=== PATIENT | female | born 1955 | race Caucasian/White ===

== ENCOUNTER 2016-09-16 16:34 | Emergency (ER) | payer BC ==
[2016-09-16 16:59] VITALS: BP 155/78
[2016-09-16 17:35] LABS: CHLORIDE,CL 101 mmol/L (98-115); SODIUM,NA 141 mmol/L (136-145)
--- NOTE | 2016-09-16 17:41 | EDM.PDOC ---
ED HPI GI/ABDOMINAL - General Chief Complaint: Gastrointestinal Problem Stated Complaint: vomiting Time Seen by Provider: 09/16/16 17:07 Source of Information: Reports: Patient History Limitations: Reports: No limitations - History of Present Illness INITIAL COMMENTS - FREE TEXT/NARRATIVE: Patient presents with vomiting and pain across upper abdomen and lower chest. The pain started 12 hours ago (at 0500 this morning) and lasted two hours then resolved. Two hours ago it returned and is now gradually resolving to mild currently. She also vomited 3 times in last 2.5 hours. She felt like the pain was gas so she took Gaviscon and Gas-X; it is better without any other treatment so far. The pain lasts about two hours per episode she says. She denies any history of heart problems but does have it in the family. No diarrhea; last meal at noon and no problems then. - Related Data Allergies/ADRs: Allergies Allergy/AdvReac Type Severity Reaction Status Date / Time Tetanus Vaccines and Toxoid Allergy Swelling Verified 04/02/16 15:16 [Tetanus Vaccines & Toxoid] Home Meds: Home Meds Celecoxib [CeleBREX] 200 mg PO DAILY 03/26/15 [History] Citalopram Hydrobromide [Citalopram HBr] 20 mg PO DAILY 03/26/15 [History] Omeprazole 20 mg PO DAILY 03/26/15 [History] predniSONE [Prednisone] 5 mg PO DAILY 03/26/15 [History] Lisinopril/Hydrochlorothiazide [Lisinopril-Hctz 20-12.5 mg Tab] 1 tab PO DAILY 03/19/16 [History] Past Medical History HEENT History: Reports: Impaired vision Cardiovascular History: Reports: Hypertension Gastrointestinal History: Reports: GERD 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: Musculoskeletal History: Reports: RA Psychiatric History: Reports: Anxiety, Depression Hematologic History: Reports: Anemia, Blood transfusion(s), Iron deficiency Oncologic (Cancer) History: Reports: Cervix - Past Surgical History HEENT Surgical History: Reports: None Cardiovascular Surgical History: Reports: None GI Surgical History: Reports: Appendectomy, Cholecystectomy Musculoskeletal Surgical History: Reports: None Social & Family History - Tobacco Use Smoking Status *Q: Former Smoker Years of Tobacco use: 20 Packs/Tins Daily: 2 Used Tobacco, but Quit: Yes Month Tobacco Last Used: 10 Second Hand Smoke Exposure: Yes - Recreational Drug Use Recreational Drug Use: No ED ROS GENERAL - Review of Systems Review Of Systems: See Below Constitutional: Reports: fever. Denies: chills, malaise, weakness, diaphoresis HEENT: Denies: Throat pain, Vision change Respiratory: Denies: Shortness of Breath, Cough Cardiovascular: Reports: Chest pain. Denies: Lightheadedness, Syncope Endocrine: Denies: fatigue GI/Abdominal: Reports: Abdominal pain, Vomiting. Denies: Diarrhea : Reports: frequency, urgency. Denies: dysuria Musculoskeletal: Reports: no symptoms Skin: Denies: cyanosis, jaundice, mottled, pallor, diaphoresis Neurological: Denies: Confusion, Dizziness, Headache, Seizure, Trouble Speaking Psychiatric: Denies: Agitation, Anxiety, Confusion ED EXAM, GI/ABD - Physical Exam Exam: See Below Exam Limited By: No limitations General Appearance: alert, WD/WN, no apparent distress Eyes: bilateral: normal appearance, EOMI Ears: normal external exam, hearing grossly normal Nose: normal inspection Throat/Mouth: Normal inspection, Normal lips, Normal voice, No airway compromise Head: atraumatic, normocephalic Neck: full range of motion Respiratory/Chest: no respiratory distress, lungs clear, normal breath sounds, no accessory muscle use Cardiovascular: regular rate, rhythm, no murmur GI/Abdominal: normal bowel sounds, soft, non tender, no organomegaly, no distention Back Exam: normal inspection Extremities: normal range of motion, non-tender Neurological: alert, oriented, normal cognition, no motor/sensory deficits Psychiatric: normal affect, normal mood Skin Exam: Warm, Dry, Intact, Normal color, No rash Course - Vital Signs Last Recorded V/S: Last Vital Signs Temp 101.8 F H 09/16/16 16:58 Pulse 83 09/16/16 16:58 Resp 20 09/16/16 16:58 BP 155/78 H 09/16/16 16:58 Pulse Ox 96 09/16/16 16:58 - Orders/Labs/Meds Orders: Active Orders 24 hr Category Date Time Status EKG Documentation Completion [RC] ASDIRECTED Care 09/16/16 17:35 Ordered CXR [Chest 2V] [CR] Stat Exams 09/16/16 17:34 Ordered CBC WITH AUTO DIFF [HEME] Stat Lab 09/16/16 17:00 Ordered CULTURE BLOOD [BC] Stat Lab 09/16/16 17:00 Received CULTURE BLOOD [BC] Stat Lab 09/16/16 17:20 Received GI Cocktail Med 09/16/16 18:29 Once 45 ml PO ONETIME ONE Ondansetron [Zofran] Med 09/16/16 18:29 Once 4 mg IVPUSH ONETIME ONE Sodium Chloride 0.9% @ 999 MLS/HR (1000ml) Med 09/16/16 17:44 Ordered Sodium Chloride 0.9% [Normal Saline] 1,000 ml IV .BOLUS Blood Culture x2 Reflex Set [OM.PC] Stat Oth 09/16/16 17:03 Ordered EKG 12 Lead [EK] Routine Ther 09/16/16 17:35 Ordered Medication Orders Sodium Chloride (Normal Saline) 1,000 mls @ 999 mls/hr IV .BOLUS ONE Stop: 09/16/16 18:44 Last Admin: 09/16/16 18:10 Dose: 999 mls/hr Labs: Laboratory Tests 09/16/16 09/16/16 Range/Units 17:00 17:40 Sodium 141 (136-145) mmol/L Potassium 4.0 (3.3-5.3) mmol/L Chloride 101 (98-115) mmol/L Carbon Dioxide 34.8 H (21.0-32.0) mmol/L BUN 21 (6-25) mg/dL Creatinine 1.18 H (0.51-1.17) mg/dL Est Cr Clr Drug Dosing TNP Estimated GFR (MDRD) 46 mL/min Glucose 104 (70-110) mg/dL Calcium 8.9 (8.7-10.3) mg/dL Troponin I 0.06 (0.00-0.070) ng/mL Specimen Type Urincc Urine Color Yellow (YELLOW) Urine Appearance Clear (CLEAR) Urine pH 6.0 (5.0-9.0) Ur Specific [place] 1.020 (1.005-1.030) Urine Protein Negative (NEGATIVE) mg/dL Urine Glucose (UA) Negative (NEGATIVE) mg/dL Urine Ketones Negative (NEGATIVE) mg/dL Urine Occult Blood Trace-lysed H (NEGATIVE) Urine Nitrite Negative (NEGATIVE) Urine Bilirubin Negative (NEGATIVE) Urine Urobilinogen 0.2 (0.2-1.0) E.U./dL Ur Leukocyte Esterase Negative (NEGATIVE) Urine RBC 0-5 /HPF Urine WBC 0-5 /HPF Ur Epithelial Cells Few /LPF Amorphous Sediment Few (0/HPF) /HPF Urine Bacteria Few (NONE TO FEW) /HPF Urine Mucus Few H (NEGATIVE) /LPF Meds: Medications Generic Name Dose Route Start Last Admin Trade Name Theresa PRN Reason Stop Dose Admin Sodium Chloride 1,000 mls @ 999 mls/hr 09/16/16 17:44 09/16/16 18:10 Normal Saline IV 09/16/16 18:44 999 mls/hr .BOLUS ONE Administration - Re-Assessments/Exams Free Text/Narrative Re-Assessment/Exam: 09/16/16 18:32 Patient is feeling better but some mild nausea yet. She still has a bit of the pain across low chest/abdomen. IV fluids are half done. Will try GI cocktail. She doesn't want Zofran yet but will do it after the fluids before we take out IV. EKG and troponin are normal. 09/16/16 19:25 Patient is feeling much better. The GI cocktail completely took away the pain across lower chest. The nausea is gone. She is sitting up and ready to go home she says. I feel this is definitely not cardiac in origin. Discussed findings and treatment plan. Patient discharged in stable condition. Departure - Departure Time of Disposition: 19:20 Disposition: Home, Self-Care 01 Condition: good Clinical Impression: Nausea and vomiting in adult GERD (gastroesophageal reflux disease) Qualifiers: Esophagitis presence: esophagitis presence not specified Qualified Code(s): K21.9 - Gastro-esophageal reflux disease without esophagitis Instructions: Nausea and Vomiting, Adult, [id number], Heartburn Forms: ED Department Discharge Additional Instructions: 1. Try to drink 8 cups of water daily. 2. Take the Zofran for nausea as directed. 3. Recheck with your PCP in a few days. 4. Recheck sooner if worsening, with PCP or ER. - My Orders Last 24 Hours: My Active Orders 09/16/16 17:00 CBC WITH AUTO DIFF [HEME] Stat CULTURE BLOOD [BC] Stat 09/16/16 17:03 Blood Culture x2 Reflex Set [OM.PC] Stat 09/16/16 17:20 CULTURE BLOOD [BC] Stat 09/16/16 17:34 CXR [Chest 2V] [CR] Stat 09/16/16 17:35 EKG Documentation Completion [RC] ASDIRECTED EKG 12 Lead [EK] Routine 09/16/16 17:44 Sodium Chloride 0.9% @ 999 MLS/HR (1000ml) Sodium Chloride 0.9% [Normal Saline] 1,000 ml IV .BOLUS 09/16/16 18:29 GI Cocktail 45 ml PO ONETIME ONE Ondansetron [Zofran] 4 mg IVPUSH ONETIME ONE - Assessment/Plan Last 24 Hours: My Active Orders 09/16/16 17:00 CBC WITH AUTO DIFF [HEME] Stat CULTURE BLOOD [BC] Stat 09/16/16 17:03 Blood Culture x2 Reflex Set [OM.PC] Stat 09/16/16 17:20 CULTURE BLOOD [BC] Stat 09/16/16 17:34 CXR [Chest 2V] [CR] Stat 09/16/16 17:35 EKG Documentation Completion [RC] ASDIRECTED EKG 12 Lead [EK] Routine 09/16/16 17:44 Sodium Chloride 0.9% @ 999 MLS/HR (1000ml) Sodium Chloride 0.9% [Normal Saline] 1,000 ml IV .BOLUS 09/16/16 18:29 GI Cocktail 45 ml PO ONETIME ONE Ondansetron [Zofran] 4 mg IVPUSH ONETIME ONE
[2016-09-16] MEDS ORDERED: Sodium Chloride 0.9% 1,000 ML IV ONE (17:44)
[2016-09-16] MEDS ORDERED: Ondansetron 4 MG/2 ML SDV IVPUSH ONE (18:29)
[2016-09-16] MEDS ORDERED: GI Cocktail 45 ML BOTTLE PO ONE (18:29)
[2016-09-16] MEDS ORDERED: GI Cocktail 45 ML BOTTLE ONE (18:36)
== END 2016-09-16 19:45 | disposition home or self-care (01) ==
LOC: KA.ED 16:34
DX: K21.9 Gastro-esophageal reflux disease without esophagitis (principal); I10 Essential (primary) hypertension; M06.9 Rheumatoid arthritis, unspecified; F41.9 Anxiety disorder, unspecified; F32.9 Major depressive disorder, single episode, unspecified; D64.9 Anemia, unspecified; Z98.890 Other specified postprocedural states; Z87.891 Personal history of nicotine dependence; Z79.899 Other long term (current) drug therapy; Z88.7 Allergy status to serum and vaccine
CPT/HCPCS: 36415; 71020; 80048; 81001; 84484; 87040; 96361; 96374; 99284; A9270; J2405; J7030; 93005

== ENCOUNTER 2017-10-20 10:10 | Emergency (ER) | payer BC, OTHER ==
[2017-10-20 10:20] VITALS: BP 127/65
--- NOTE | 2017-10-20 10:57 | EDM.PDOC ---
ED HPI GENERAL MEDICAL PROBLEM - General Chief Complaint: General Stated Complaint: knee pain from fall Time Seen by Provider: 10/20/17 10:30 Source of Information: Reports: Patient, Family History Limitations: Reports: No Limitations - History of Present Illness INITIAL COMMENTS - FREE TEXT/NARRATIVE: 62 YO WF presents to ER after fall today. Pt reports she was leaning forward to pick something up off the ground and fell forward landing on her left knee. Pt reports she was able to get up on her own after the fall. Pt reports she has soreness to left knee and hip but ambulating without difficulty. Pt denies any head injury. Pt denies any other discomfort. 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 Left Knee Pain Score (Numeric/FACES): 8 - Related Data Allergies Allergy/AdvReac Type Severity Reaction Status Date / Time Tetanus Vaccines and Toxoid Allergy Swelling Verified 10/20/17 10:22 [Tetanus Vaccines & Toxoid] Home Meds: Home Meds Celecoxib [CeleBREX] 200 mg PO DAILY 03/26/15 [History] Citalopram Hydrobromide [Citalopram HBr] 20 mg PO DAILY 03/26/15 [History] Omeprazole 20 mg PO DAILY 03/26/15 [History] predniSONE [Prednisone] 20 mg PO DAILY 03/26/15 [History] Lisinopril/Hydrochlorothiazide [Lisinopril-Hctz 20-12.5 mg Tab] 1 tab PO DAILY 03/19/16 [History] atorvaSTATin Calcium [Atorvastatin Calcium] 20 mg PO DAILY 10/20/17 [History] Past Medical History HEENT History: Reports: Impaired Vision Cardiovascular History: Reports: Hypertension Gastrointestinal History: Reports: GERD Genitourinary History: Reports: Other (See Below) Other Genitourinary History: In the past one of her Doctors told her not to take so much ibuprofen because it was affecting the kidneys. 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: Musculoskeletal History: Reports: RA Neurological History: Reports: Head Trauma, Migraines Psychiatric History: Reports: Anxiety, Depression Hematologic History: Reports: Anemia, Blood Transfusion(s), Iron Deficiency Oncologic (Cancer) History: Reports: Cervix Dermatologic History: Reports: Urticaria - Infectious Disease History Infectious Disease History: Reports: Chicken Pox - Past Surgical History Female Surgical History: Reports: Hysterectomy, Other (See Below) Social & Family History - Family History Family Medical History: Noncontributory - Tobacco Use Smoking Status *Q: Former Smoker Years of Tobacco use: 20 Packs/Tins Daily: 2 Used Tobacco, but Quit: Yes Month/Year Tobacco Last Used: 2002 Second Hand Smoke Exposure: Yes - Caffeine Use Caffeine Use: Reports: Coffee, Soda - Recreational Drug Use Recreational Drug Use: No ED ROS GENERAL - Review of Systems Review Of Systems: See Below Constitutional: Reports: No Symptoms HEENT: Reports: No Symptoms Respiratory: Reports: No Symptoms Cardiovascular: Reports: No Symptoms Endocrine: Reports: No Symptoms GI/Abdominal: Reports: No Symptoms : Reports: No Symptoms Musculoskeletal: Reports: Leg Pain Skin: Reports: No Symptoms Neurological: Reports: No Symptoms Psychiatric: Reports: No Symptoms Hematologic/Lymphatic: Reports: No Symptoms Immunologic: Reports: No Symptoms ED EXAM, GENERAL - Physical Exam Exam: See Below Exam Limited By: No Limitations General Appearance: Alert, WD/WN, No Apparent Distress Neck: Normal Inspection, Supple, Non-Tender, Full Range of Motion Respiratory/Chest: No Respiratory Distress, Lungs Clear, Normal Breath Sounds, No Accessory Muscle Use, Chest Non-Tender Cardiovascular: Normal Peripheral Pulses, Regular Rate, Rhythm, No Edema, No Gallop, No JVD, No Murmur, No Rub GI/Abdominal: Normal Bowel Sounds, Soft, Non-Tender, No Organomegaly, No Distention, No Abnormal Bruit, No Mass Back Exam: Normal Inspection, Full Range of Motion, NT Extremities: Leg Pain (left knee contusion/ecchymosis) Neurological: Alert, Oriented, CN II-XII Intact, Normal Cognition, Normal Gait, Normal Reflexes, No Motor/Sensory Deficits Psychiatric: Normal Affect, Normal Mood Skin Exam: Warm, Dry, Intact, Normal Color, No Rash Lymphatic: No Adenopathy Course - Vital Signs Last Recorded V/S: Last Vital Signs Temp 37.1 C 10/20/17 10:14 Pulse 72 10/20/17 10:14 Resp 18 10/20/17 10:14 BP 127/65 10/20/17 10:14 Pulse Ox 95 10/20/17 10:14 - Orders/Labs/Meds Orders: Active Orders 24 hr Category Date Time Status Knee 3V Lt [CR] Stat Exams 10/20/17 10:20 Ordered Pelvis 1V or 2V [CR] Stat Exams 10/20/17 10:20 Ordered - Radiology Interpretation Free Text/Narrative:: left knee- NAD pelvis- NAD Departure - Departure Time of Disposition: 11:05 Disposition: Home, Self-Care 01 Condition: Good Clinical Impression: Contusion of knee, left Qualifiers: Encounter type: initial encounter Qualified Code(s): S80.02XA - Contusion of left knee, initial encounter - Discharge Information Instructions: Knee Sprain, Adult, [id number] Referrals: Tiffany Taylor MD [Primary Care Provider] - - My Orders Last 24 Hours: My Active Orders 10/20/17 10:20 Knee 3V Lt [CR] Stat Pelvis 1V or 2V [CR] Stat - Assessment/Plan Last 24 Hours: My Active Orders 10/20/17 10:20 Knee 3V Lt [CR] Stat Pelvis 1V or 2V [CR] Stat Assessment:: 1. left knee contusion 2. fall Plan: 1. discharge home 2. continue current medication for pain 3. off work x 3 days 4. follow up in clinic in 1 week if no improvement 5. return to ER for worsening symptoms
== END 2017-10-20 11:28 | disposition home or self-care (01) ==
LOC: KA.ED 10:10
DX: S80.02XA Contusion of left knee, initial encounter (principal); I10 Essential (primary) hypertension; K21.9 Gastro-esophageal reflux disease without esophagitis; Z88.7 Allergy status to serum and vaccine; Z79.899 Other long term (current) drug therapy; Z87.891 Personal history of nicotine dependence; W19.XXXA Unspecified fall, initial encounter
CPT/HCPCS: 72170; 73562-LT; 99283

== ENCOUNTER 2018-12-14 16:15 | Emergency (ER) | payer MEDICARE, BC ==
[2018-12-14] MEDS ORDERED: Acetaminophen 500 MG Tab PO ONE (16:37)
[2018-12-14] MEDS ORDERED: Ketorolac 60 MG/2 ML SDV IM ONE (16:48)
--- NOTE | 2018-12-14 16:49 | EDM.PDOC ---
ED HPI GENERAL MEDICAL PROBLEM - General Chief Complaint: Lower Extremity Injury/Pain Stated Complaint: left knee pain Time Seen by Provider: 12/14/18 16:30 Source of Information: Reports: Patient History Limitations: Reports: No Limitations - History of Present Illness INITIAL COMMENTS - FREE TEXT/NARRATIVE: 63 YO WF presents to ER after trip and fall at home. Pt reports pain in her left knee after falling directly on it. Pt with history of arthritis and fibromyalgia. 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 Pt reports mild right elbow pain but is most concerned about her left knee. Pt able to stand but reports pain with ambulation. Onset: Today Duration: Chronic Location: Reports: Lower Extremity, Left, Lower Extremity, Right Quality: Reports: Ache Severity: Moderate Improves with: Reports: Rest Worsens with: Reports: Movement Associated Symptoms: Reports: No Other Symptoms left knee Pain Score (Numeric/FACES): 7 - Related Data Allergies Allergy/AdvReac Type Severity Reaction Status Date / Time Tetanus Vaccines and Toxoid Allergy Swelling Verified 12/14/18 17:24 [Tetanus Vaccines & Toxoid] Home Meds: Home Meds Celecoxib [CeleBREX] 200 mg PO DAILY 03/26/15 [History] Citalopram Hydrobromide [Citalopram HBr] 20 mg PO DAILY 03/26/15 [History] Omeprazole 20 mg PO DAILY 03/26/15 [History] predniSONE [Prednisone] 20 mg PO DAILY 03/26/15 [History] Lisinopril/Hydrochlorothiazide [Lisinopril-Hctz 20-12.5 mg Tab] 1 tab PO DAILY 03/19/16 [History] atorvaSTATin Calcium [Atorvastatin Calcium] 20 mg PO DAILY 10/20/17 [History] Ibuprofen [Motrin] 800 mg PO TID #15 tablet 12/14/18 [Rx] Past Medical History HEENT History: Reports: Impaired Vision Cardiovascular History: Reports: Hypertension Gastrointestinal History: Reports: GERD Genitourinary History: Reports: Other (See Below) Other Genitourinary History: In the past one of her Doctors told her not to take so much ibuprofen because it was affecting the kidneys. 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: Musculoskeletal History: Reports: RA Neurological History: Reports: Head Trauma, Migraines Psychiatric History: Reports: Anxiety, Depression Hematologic History: Reports: Anemia, Blood Transfusion(s), Iron Deficiency Oncologic (Cancer) History: Reports: Cervix Dermatologic History: Reports: Urticaria - Infectious Disease History Infectious Disease History: Reports: Chicken Pox - Past Surgical History Female Surgical History: Reports: Hysterectomy, Other (See Below) Social & Family History - Family History Family Medical History: Noncontributory - Caffeine Use Caffeine Use: Reports: Coffee, Soda Review of Systems - Review of Systems Review Of Systems: See Below Constitutional: Reports: No Symptoms Eyes: Reports: No Symptoms Ears: Reports: No Symptoms Nose: Reports: No Symptoms Mouth/Throat: Reports: No Symptoms Respiratory: Reports: No Symptoms Cardiovascular: Reports: No Symptoms GI/Abdominal: Reports: No Symptoms Genitourinary: Reports: No Symptoms Musculoskeletal: Reports: Leg Pain (left pain) Skin: Reports: No Symptoms Neurological: Reports: No Symptoms Psychiatric: Reports: No Symptoms ED EXAM, GENERAL - Physical Exam Exam: See Below Exam Limited By: No Limitations General Appearance: Alert, WD/WN, No Apparent Distress Eye Exam: Bilateral Eye: EOMI, PERRL Nose: Normal Inspection, Normal Mucosa, No Blood Throat/Mouth: Normal Inspection, Normal Lips, Normal Teeth, Normal Gums, Normal Oropharynx, Normal Voice, No Airway Compromise Head: Atraumatic, Normocephalic Neck: Normal Inspection, Supple, Non-Tender, Full Range of Motion Respiratory/Chest: No Respiratory Distress, Lungs Clear, Normal Breath Sounds, No Accessory Muscle Use, Chest Non-Tender Cardiovascular: Normal Peripheral Pulses, Regular Rate, Rhythm, No Edema, No Gallop, No JVD, No Murmur, No Rub GI/Abdominal: Normal Bowel Sounds, Soft, Non-Tender, No Organomegaly, No Distention, No Abnormal Bruit, No Mass Back Exam: Normal Inspection, Full Range of Motion, NT Extremities: Arm Pain, Leg Pain (patella tenderness) Neurological: Alert, Oriented, CN II-XII Intact, Normal Cognition, Normal Gait, Normal Reflexes, No Motor/Sensory Deficits Psychiatric: Normal Affect, Normal Mood Skin Exam: Warm, Dry, Intact, Normal Color, No Rash Lymphatic: No Adenopathy Course - Vital Signs Last Recorded V/S: Last Vital Signs Temp 37.1 C 12/14/18 16:15 Pulse 77 12/14/18 16:15 Resp 20 12/14/18 16:15 BP 94/29 L 12/14/18 16:15 Pulse Ox 94 L 12/14/18 16:15 - Orders/Labs/Meds Orders: Active Orders 24 hr Category Date Time Status Salas Bandage [RC] ONETIME Care 12/14/18 17:48 Ordered Elbow 2V Rt [CR] Stat Exams 12/14/18 16:45 Taken Knee 3V Lt [CR] Stat Exams 12/14/18 16:37 Taken Meds: Medications Discontinued Medications Generic Name Dose Route Start Last Admin Trade Name Theresa PRN Reason Stop Dose Admin Acetaminophen 1,000 mg 12/14/18 16:37 12/14/18 16:47 Tylenol Extra Strength PO 12/14/18 16:38 1,000 mg ONETIME ONE Administration Ketorolac Tromethamine 60 mg 12/14/18 16:48 Toradol IM 12/14/18 16:49 ONETIME ONE - Radiology Interpretation Free Text/Narrative:: right elbow- NAD left knee- NAD Departure - Departure Time of Disposition: 18:00 Disposition: Home, Self-Care 01 Condition: Good Clinical Impression: Contusion of elbow, right Contusion of left knee Qualifiers: Encounter type: initial encounter Qualified Code(s): S80.02XA - Contusion of left knee, initial encounter - Discharge Information Prescriptions: Ibuprofen [Motrin] 800 mg PO TID #15 tablet Instructions: Knee Sprain, Adult, [id number], Tibial and Fibular Fractures Referrals: Tiffany Taylor MD [Primary Care Provider] - Forms: ED Department Discharge Additional Instructions: 1. discharge home 2. motrin 800mg PO TID 3. ice/elevation/ambulation with walker 4. follow up with Dr Pappas in am 5. recommending PT for ambulation and strengthening 6. return to ER for worsening symptoms - My Orders Last 24 Hours: My Active Orders 12/14/18 16:37 Knee 3V Lt [CR] Stat 12/14/18 16:45 Elbow 2V Rt [CR] Stat 12/14/18 17:48 Salas Bandage [RC] ONETIME - Assessment/Plan Last 24 Hours: My Active Orders 12/14/18 16:37 Knee 3V Lt [CR] Stat 12/14/18 16:45 Elbow 2V Rt [CR] Stat 12/14/18 17:48 Salas Bandage [RC] ONETIME Assessment:: 1. left knee contusion 2. right elbow contusion Plan: 1. discharge home 2. motrin 800mg PO TID 3. ice/elevation/ambulation with walker 4. follow up with Dr Pappas in am 5. recommending PT for ambulation and strengthening 6. return to ER for worsening symptoms
[2018-12-14 17:24] VITALS: BP 94/29
--- NOTE | 2018-12-15 09:31 | CR ---
[id number] RAD/RAD Elbow Right 2V Exam: RAD Elbow Right 2V Indication:FALL, PAIN RIGHT ELBOW. Comparison: No prior imaging for comparison. Discussion: No joint effusion, fracture, dislocation. Impression: No acute findings. Jorgito Ferrara MD 12/14/18 [id number] Thank you for allowing us to participate in the care of your patient.
--- NOTE | 2018-12-15 09:31 | CR ---
[id number] RAD/RAD Knee Left 3V Exam: RAD Knee Left 3V Indication:FALL, LEFT KNEE PAIN. Comparison: No prior imaging for comparison. Discussion: Small joint effusion and tricompartmental osteoarthritis. Tricompartmental osteoarthritis and medial compartment joint space narrowing. Impression: Small joint effusion. No fracture or dislocation. Jorgito Ferrara MD 12/14/18 [id number] Thank you for allowing us to participate in the care of your patient.
== END 2018-12-14 18:18 | disposition home or self-care (01) ==
LOC: KA.ED 16:15
DX: S80.01XA Contusion of right knee, initial encounter (principal); S50.01XA Contusion of right elbow, initial encounter; I10 Essential (primary) hypertension; K21.9 Gastro-esophageal reflux disease without esophagitis; F41.9 Anxiety disorder, unspecified; F32.9 Major depressive disorder, single episode, unspecified; Z79.899 Other long term (current) drug therapy; Z88.7 Allergy status to serum and vaccine; W01.0XXA Fall on same level from slipping, tripping and stumbling without subsequent striking against object, initial encounter; Y92.009 Unspecified place in unspecified non-institutional (private) residence as the place of occurrence of the external cause
CPT/HCPCS: 73070-RT; 73562-LT; 96372; 99283; 99283-25; A9270-GY; J1885

== ENCOUNTER 2021-12-16 07:54 | Day surgery (SDC) | payer MEDICARE, BC ==
[2021-12-16] MEDS ORDERED: Sodium Chloride 0.9% 10 ML Syringe FLUSH PRN (08:00)
[2021-12-16] MEDS ORDERED: Propofol 200 MG/20 ML SDV ONE (08:09)
[2021-12-16] MEDS: Lactated Ringers 1,000 ML IV SCH (08:32)
[2021-12-16] MEDS: Scopolamine 1.5 MG Transdermal Patch TOP ONE (08:52)
[2021-12-16 11:03] VITALS: BP 121/64; PULSE 98
== END 2021-12-16 11:30 | disposition home or self-care (01) ==
LOC: KA.SDS 07:54
PROVIDERS: ATTEND Surgery
DX: D12.3 Benign neoplasm of transverse colon (principal); D12.4 Benign neoplasm of descending colon; K57.30 Diverticulosis of large intestine without perforation or abscess without bleeding; K64.4 Residual hemorrhoidal skin tags; F41.8 Other specified anxiety disorders; K21.9 Gastro-esophageal reflux disease without esophagitis; I10 Essential (primary) hypertension; E78.5 Hyperlipidemia, unspecified; E55.9 Vitamin D deficiency, unspecified; Z88.7 Allergy status to serum and vaccine; Z79.899 Other long term (current) drug therapy; Z90.49 Acquired absence of other specified parts of digestive tract; Z87.891 Personal history of nicotine dependence
CPT/HCPCS: 00811; A9270-GY; J2704; J7120

== ENCOUNTER 2024-01-01 15:23 | Emergency (ER) | payer MEDICARE ==
[2024-01-01] MEDS: predniSONE 20 MG Tab PO ONE (16:27)
[2024-01-01 16:36] VITALS: BP 131/78; PULSE 80
== END 2024-01-01 16:32 | disposition home or self-care (01) ==
LOC: KA.ED 15:23
DX: L50.9 Urticaria, unspecified (principal); I10 Essential (primary) hypertension; E78.00 Pure hypercholesterolemia, unspecified; K21.9 Gastro-esophageal reflux disease without esophagitis; E66.9 Obesity, unspecified; Z90.49 Acquired absence of other specified parts of digestive tract; Z90.710 Acquired absence of both cervix and uterus; Z79.899 Other long term (current) drug therapy; Z88.7 Allergy status to serum and vaccine
CPT/HCPCS: 99282; 99283; J7512

== ENCOUNTER 2025-03-29 14:12 | Emergency (ER) | payer MEDICARE, OTHER ==
[2025-03-29 15:42] VITALS: BP 146/85; PULSE 71
== END 2025-03-29 15:46 | disposition home or self-care (01) ==
LOC: KA.ED 14:13
DX: S63.521A Sprain of radiocarpal joint of right wrist, initial encounter (principal); I10 Essential (primary) hypertension; K21.9 Gastro-esophageal reflux disease without esophagitis; E78.00 Pure hypercholesterolemia, unspecified; E66.9 Obesity, unspecified; Z88.4 Allergy status to anesthetic agent; Z79.899 Other long term (current) drug therapy; Z68.36 Body mass index [BMI] 36.0-36.9, adult; Z90.49 Acquired absence of other specified parts of digestive tract; Z90.710 Acquired absence of both cervix and uterus; W19.XXXA Unspecified fall, initial encounter; Y99.0 Civilian activity done for income or pay; Y92.89 Other specified places as the place of occurrence of the external cause
CPT/HCPCS: 73090-RT; 73110-RT; 99283